=== PATIENT | male | born 1950 | race Caucasian/White ===

== ENCOUNTER 2020-10-04 09:28 | Emergency (ER) | payer MEDICARE, MEDICAID, SELFPAY ==
[2020-10-04] VITALS (9 sets, daily range): BP systolic 112–131; BP diastolic 74–85; PULSE 75–90; RESP 17–26; TEMP 36.3–36.7; O2SAT 93–100
--- NOTE | ~2020-10-04 | XR_ITS ---
EXAMINATION: XR chest 1V portable EXAM DATE: 10/04/2020 11:02 INDICATION: COVID +, hypoxia TECHNIQUE: Portable AP frontal chest x-ray was obtained. Comparison is made to prior examination from 07/19/2018. FINDINGS: There is patchy ill-defined bilateral airspace disease, consistent with acute lung injury f rom SARS-CoV-2, most likely explanation given history provided above. There is no pneumothorax suspec kevin. There are no pleural effusions. Cardiomediastinal silhouette is normal. There are mild bony dege nerative changes. IMPRESSION: Patchy bilateral ill-defined acute airspace disease. Reviewed, dictated and finalized at location B. [facility]
--- NOTE | 2020-10-04 10:37 | ED.GENADULT ---
HPI - General Adult General Chief complaint: Unspecified <Sandy Gee PA-C - Last Filed: 10/04/20 12:35> Stated complaint: LOW O2 SATS <Sandy Gee PA-C - Last Filed: 10/04/20 12:35> Time Seen by Provider: 10/04/20 09:56 <Sandy Gee PA-C - Last Filed: 10/04/20 12:35> Source: patient <Sandy Gee PA-C - Last Filed: 10/04/20 12:35> Mode of arrival: EMS <DAVID Lo Last Filed: 10/04/20 12:35> Limitations: no limitations <Sandy Gee PA-C - Last Filed: 10/04/20 12:35> History of Present Illness HPI narrative: This is a 70 year old male that presents to the ER for low oxygen saturation via EMS from [facility]. Reports he was tested for COVID and positive on 10/01. He has required oxygen at the nursing facility since diagnosis. There are reports he had an infiltrate on chest XR as well. Patient currently has no complaints. Reports he has been having fevers. Denies cough, chest pain, shortness of breath, or lower extremity edema. <Sanyd Gee PA-C - Last Filed: 10/04/20 12:35> Related Data Home medications: Home Medications Medication Instructions Recorded Confirmed albuterol sulfate INHALATION 10/04/20 allopurinol 10/04/20 benztropine 10/04/20 budesonide-formoterol [Symbicort] INHALATION 10/04/20 divalproex PO 10/04/20 divalproex PO 10/04/20 docusate sodium 100 mg PO BID 10/04/20 10/04/20 fluticasone propionate INTRANASAL 10/04/20 gabapentin 10/04/20 guaifenesin 400 mg PO BID 10/04/20 10/04/20 haloperidol lactate 10/04/20 meloxicam 10/04/20 olanzapine mg 10/04/20 polyethylene glycol 3350 [Miralax] 17 g PO DAILY 10/04/20 10/04/20 scopolamine base 10/04/20 tamsulosin mg PO 10/04/20 tiotropium bromide [Spiriva with INHALATION 10/04/20 HandiHaler] <Sandy Gee PA-C - Last Filed: 10/04/20 12:35> Allergies/adverse reactions: Allergies Allergy/AdvReac Type Severity Reaction Status Date / Time TUBERCULIN,OLD SKIN TEST Allergy Unknown Unknown Uncoded 10/04/20 10:36 <Sandy Gee PA-C - Last Filed: 10/04/20 12:35> Review of Systems Review of Systems: Narrative: CONSTITUTIONAL: Reports fever ENT: Denies rhinorrhea, congestion, sore throat CARDIOVASCULAR: Denies chest pain, or edema. RESPIRATORY: Denies cough or dyspnea. <Sandy Gee PA-C - Last Filed: 10/04/20 12:35> All systems reviewed & are unremarkable except as noted in HPI and below <Sandy Gee PA-C - Last Filed: 10/04/20 12:35> [facility] Past Medical History Medical History: Medical History (Updated 10/04/20 @ 12:29 by Sandy Gee PA-C) History of COPD History of gout History of schizophrenia <Sandy Gee PA-C - Last Filed: 10/04/20 12:35> Exam Narrative: Exam Narrative: GENERAL: Elderly, well-nourished, and in no acute distress. HEAD: Normocephalic, atraumatic. EYES: EOMI. ENT: Nares clear, no rhinorrhea or epistaxis. Mucous membranes moist. Oropharynx without tonsillar hypertrophy exudate or other lesions. Bilateral TMs pearly sharpe non-bulging NECK: Supple. No adenopathy or masses. CHEST: Clear to auscultation. No respiratory distress. No wheezes rales or rhonchi HEART: Regular rate and rhythm. No murmur heard. Normal peripheral pulses. EXTREMITIES: Normal range of motion. No edema. SKIN: Warm, dry, no rash. NEURO: No focal deficits. Alert and oriented x3. PSYCH: Normal mood and affect <Sandy Gee PA-C - Last Filed: 10/04/20 12:35> Course Consultations Consultation #1: Spoke with Dr. Villarreal about patient and work-up. Facility does have capability of putting patient on oxygen there and is felt stable for discharge back. <Sandy Gee PA-C - Last Filed: 10/04/20 12:35> Date: 10/04/20 <Sandy Gee PA-C - Last Filed: 10/04/20 12:35> Time: 12:27 <Sandy Gee PA-C - Last Filed: 10/04/20 12:35> Vital Signs Vital signs: Vital Signs Temperat
[2020-10-04 11:05] LABS: Basophils Percent Auto 0.5 % (0.2-1.2); Eosinophils Percent Auto 0.2 % (0-4.4); Hematocrit 39.4 % (42.0-52.0); Hemoglobin 12.1 g/dL (14.0-18.0); Immature Granulocyte Absolute 0.02 K/mm3 (0.00-0.031); Immature Granulocyte Percent A 0.5 % (0-0.5); Lymphocytes Absolute Auto 0.82 K/mm3 (0.9-3.2); Lymphocytes Percent Auto 20.3 % (18.3-44.2); Mean Corpuscular HGB Conc 30.7 g/dl (32-36); Mean Corpuscular Hemoglobin 29.8 pg (26-34); Mean Platelet Volume 10.8 fl (7.4-10.4); Monocytes Absolute Auto 0.7 K/mm3 (0.1-0.6); Monocytes Percent Auto 16.3 % (2.6-8.5); Neutrophils Absolute Auto 2.5 K/mm3 (1.3-6.7); Neutrophils Percent Auto 62.2 % (45.5-73.1); Platelet Count Result 168 k/mm3 (150-375); Red Blood Count 4.06 M/mm3 (4.6-6.20); Red Cell Distribution Width 15.8 % (11.5-14.5)
[2020-10-04 11:14] LABS: Lactic Acid Reflex 1.9 mmol/L (0.7-2.1)
[2020-10-04 11:16] LABS: Alanine Aminotransferase 17 U/L (4-50); Albumin Level 3.4 g/dL (3.5-5.1); Alkaline Phosphatase 62 U/L (38-126); Anion Gap 7 mmol/L (8-16); Aspartate Amino Transferase 36 U/L (17-59); Bilirubin,Total 0.3 mg/dL (0.2-1.3); Blood Urea Nitrogen 17 mg/dL (9-20); CRP 2.2 mg/dL (<1.0); Calcium 8.2 mg/dL (8.4-10.2); Carbon Dioxide 31 mmol/L (22-30); Chloride 102 mmol/L (98-107); Estimated CRCL calculation 92 ml/min; Estimated Glomerular Filt Rate > 60; Glucose 119 mg/dL (75-110); Lactate Dehydrogenase 543 U/L (313-618); Potassium 3.6 mmol/L (3.4-5.0); Sodium 140 mmol/L (137-145)
--- NOTE | 2020-10-04 12:58 | PC.NURSE ---
Angeles RN from [facility] requested that when pt is d/c back to their facility if he could be d/c with his iv intact. water filterer helper and EDP made aware and agree with plan as pt will be getting IV antibiotics at the facility.
== END 2020-10-04 17:53 ==
PROVIDERS: Physician Assistant; Emergency Provider General Practice; PCP Family Medicine
DX: U07.1 COVID-19 (principal); J12.89 Other viral pneumonia; J44.9 Chronic obstructive pulmonary disease, unspecified; F20.9 Schizophrenia, unspecified; M10.9 Gout, unspecified
CPT/HCPCS: 36415; 71045; 80053; 82728; 83605; 83615; 85025; 85055; 86140; 99283

== ENCOUNTER 2022-04-05 15:48 | Emergency (ER) | payer MEDICARE, MEDICAID, SELFPAY ==
[2022-04-05 16:02] VITALS: BP 142/80; PULSE 94; RESP 18; TEMP 36.4; O2SAT 96
--- NOTE | 2022-04-05 17:19 | ED.MALEGU ---
HPI - Male Genitourinary General Chief complaint: Urogenital-Male Stated complaint: urinary retention, bleeding after de la fuente attempt Time Seen by Provider: 04/05/22 16:41 Source: patient Mode of arrival: ambulatory Limitations: language barrier History of Present Illness HPI Narrative: Pt says he had a straight cath today because he was having trouble fully voiding and the nurse said there was a lot of blood afterward and she was concerned about a damaged urethra so he came to ER. Location: penis Related Data Home Medications Medication Instructions Recorded Confirmed albuterol sulfate INHALATION 10/04/20 allopurinol 10/04/20 benztropine 10/04/20 budesonide-formoterol [Symbicort] INHALATION 10/04/20 divalproex PO 10/04/20 divalproex PO 10/04/20 docusate sodium 100 mg PO BID 10/04/20 10/04/20 fluticasone propionate INTRANASAL 10/04/20 gabapentin 10/04/20 guaifenesin 400 mg PO BID 10/04/20 10/04/20 haloperidol lactate 10/04/20 meloxicam 10/04/20 olanzapine mg 10/04/20 polyethylene glycol 3350 [Miralax] 17 g PO DAILY 10/04/20 10/04/20 scopolamine base 10/04/20 tamsulosin mg PO 10/04/20 tiotropium bromide [Spiriva with INHALATION 10/04/20 HandiHaler] Allergies Allergy/AdvReac Type Severity Reaction Status Date / Time TUBERCULIN,OLD SKIN TEST Allergy Unknown Unknown Uncoded 04/05/22 17:22 Review of Systems Review of Systems: All systems reviewed & are unremarkable except as noted in HPI and below [facility] Past Medical History Medical History (Updated 04/05/22 @ 18:16 by Kermit Luna III, DO) History of COPD History of gout History of schizophrenia Exam Const: General: no acute distress and alert Resp: Effort & Inspection: normal respiratory effort Auscultation: clear to auscultation bilaterally Cardio: Rate: regular rate Rhythm: regular rhythm GI: GI Palp: Yes Soft to palpation Auscultation: normal bowel sounds Skin: General skin exam: normal color Neuro: General: patient oriented x3 Course Course Emergency Course: nurse said catheter went in easily without resistance, 800 ml prior by bladder scan and that is what she got in de la fuente no gross blood, urine cloudy and dark Vital Signs Vital signs: Vital Signs Temperature 97.5 F L 04/05/22 16:02 Pulse Rate 94 04/05/22 16:02 Respiratory Rate 18 04/05/22 16:02 Blood Pressure 142/80 H 04/05/22 16:02 Pulse Oximetry 96 04/05/22 16:02 Temperature 97.5 F L 04/05/22 16:02 Pulse Rate 76 04/05/22 18:19 Respiratory Rate 20 04/05/22 18:19 Blood Pressure 126/82 04/05/22 18:19 Pulse Oximetry 95 04/05/22 18:19 MDM - Male Genitourinary Lab Data Labs: Lab Results 04/05/22 Range/Units 17:23 Urine Color Yellow (Yellow) Urine Appearance Cloudy H (Clear) Urine pH 6.5 (5.0-9.0) Ur Specific [place] 1.020 (1.001-1.035) Urine Protein Trace (Negative) mg/dL Urine Glucose (UA) Negative (Negative) mg/dL Urine Ketones Negative (Negative) mg/dL Ur Blood (Man) 2+ H (Negative) Urine Nitrate Negative (Negative) Urine Bilirubin Negative (Negative) Urine Urobilinogen 0.2 (<2.0) mg/dL Leukocyte Esterase Rfl Trace H (Negative) BRANDYN/UL Urine RBC >75 H (0-2) /hpf Urine WBC 31-50 H /hpf Urine Bacteria Trace /hpf Urine Mucus Rare /lpf Urine Characteristics Cloudy Discharge Plan Discharge Clinical Impression: Acute urinary retention Urinary tract infection Qualifiers: Urinary tract infection type: acute cystitis Hematuria presence: with hematuria Qualified Code(s): N30.01 - Acute cystitis with hematuria Patient Disposition: Home, Self-Care Condition: Improved Instructions: Antibiotic Form, Urinary Retention in Men (ED), Urinary Tract Infection in Men (ED) Prescriptions: New nitrofurantoin monohyd/m-cryst [Macrobid] 100 mg capsule 100 mg PO Q12H 5 Days Qty: 10 RF: 0 No Act
[2022-04-05 17:41] LABS: Appearance Urine Cloudy (Clear); Bilirubin Urine Negative (Negative); Blood Urine 2+ (Negative); Color Urine Yellow (Yellow); Glucose Urine UA Negative (Negative); Ketones Urine Negative (Negative); Leukocyte Esterase Ur Trace LEU/UL (Negative); Nitrate Urine Negative (Negative); Protein Urine Trace mg/dL (Negative); Urobilinogen Urine 0.2 mg/dL (<2.0); pH Urine 6.5 (5.0-9.0)
[2022-04-05 17:47] LABS: Bacteria Urine Trace /hpf; Mucus Urine Rare /lpf; RBC Urine >75 /hpf (0-2); WBC Urine 31-50 /hpf
[2022-04-05 17:55] LABS: Add Urine Microscopic? YES
[2022-04-05 18:19] VITALS: BP 126/82; PULSE 76; RESP 20; O2SAT 95
--- NOTE | 2022-04-05 18:35 | PC.NURSE ---
@ [phone] ryegate sup notified of bls return to [facility]
[2022-04-05 20:25] VITALS: BP 142/71; PULSE 75; RESP 16; O2SAT 97
== END 2022-04-05 20:30 ==
PROVIDERS: Emergency Provider Emergency Medicine; PCP Family Medicine
DX: N30.01 Acute cystitis with hematuria (principal); R33.9 Retention of urine, unspecified; J44.9 Chronic obstructive pulmonary disease, unspecified; M10.9 Gout, unspecified; F20.9 Schizophrenia, unspecified
CPT/HCPCS: 51702; 81001; 87086; 99283

== ENCOUNTER 2024-03-19 17:31 | Inpatient (IN) | payer MEDICARE, MEDICAID, SELFPAY ==
--- NOTE | ~2024-03-19 | CT_ITS ---
EXAMINATION: CT abdomen pelvis wo/w con DATE: 03/19/2024 23:09 INDICATION: Gross hematuria. Urinary tract infection. TECHNIQUE: Computed tomography (CT) of the abdomen and pelvis was performed without and with intraven ous contrast using a total of 130 mL Omnipaque-350 intravenous contrast with a double-bolus technique for simultaneous opacification of the renal parenchyma and renal collecting system. Automated exposu re control and iterative reconstruction technique were employed. The dose-length product was 3608.26 mGy-cm. COMPARISON: None FINDINGS: The visualized portions of the lung bases demonstrate emphysema and mild atelectasis. There are tree- in-bud opacities in the lower lobes, consistent with pneumonia. There is a 4 mm nodule in right middl e lobe, likely benign. The heart size is normal. There are coronary artery calcifications. No pericar dial effusion. The liver is normal. There is a gallstone in the gallbladder, which is normal in size. Calcifications in the spleen are consistent with old granulomatous disease. Calcifications in the pa ncreas are consistent with chronic pancreatitis. Left adrenal gland is normal. There is a 3.2 cm mass in right adrenal gland containing fat, consistent with a myelolipoma. There are cysts in the kidneys measuring up to 10.6 cm in the left. There is no urolithiasis. There are others are well opacified a nd are normal. There is a Law catheter in expected position. There is hematoma in the bladder lumen . There is diffuse bladder wall thickening. The prostate is mildly enlarged. There is a right inguina l hernia containing fat. Stool distends the rectosigmoid. There are no dilated loops of bowel. The ap pendix is normal. There is calcified atherosclerosis of the aorta and many of the other arteries. The re are no pathologically enlarged lymph nodes. There is no free intraperitoneal fluid. There is mild thoracic and lumbar spondylosis. IMPRESSION: 1. Hematoma in the bladder lumen. 2. Diffuse bladder wall thickening, likely secondary to chronic outlet obstruction from the mildly en larged prostate. 3. Pneumonia in the lower lobes. Reviewed, dictated and finalized at location E. IMPRESSION: 1. Hematoma in the bladder lumen. 2. Diffuse bladder wall thickening, likely secondary to chronic outlet obstruct ion from the mildly enlarged prostate. 3. Pneumonia in the lower lobes.
[2024-03-19 17:49] VITALS: BP 131/80; PULSE 77; RESP 16; TEMP 36.6; O2SAT 98
--- NOTE | 2024-03-19 17:49 | ED.MALEGU ---
HPI - Male Genitourinary General Chief complaint: Urogenital-Male <Anant Almnazar, INVENTORY PLANNER - Last Filed: 04/08/24 08:50> Stated complaint: blood clot in urine <Anant Almanzar INVENTORY PLANNER - Last Filed: 04/08/24 08:50> Time Seen by Provider: 03/19/24 22:03 <Anant Almanzar INVENTORY PLANNER - Last Filed: 04/08/24 08:50> Focused HPI: GENERAL: Well-appearing, well-nourished, and in no acute distress. HEAD: Normocephalic, atraumatic. CHEST: Clear to auscultation. No respiratory distress. HEART: Regular rate and rhythm. NEURO: Alert and oriented x3. ABD: No abdominal pain. No suprapubic tenderness Patient screened in triage and initial orders placed. Additional care and disposition to be based upon diagnostic testing and treatment. 73-year-old male history of lung CA, seizure disorder BPH on Flomax presents to the emergency room for evaluation of hematuria. Patient states he passed a blood clot earlier today. Patient states he has been able to empty his bladder on 2 occasions after passing blood clot. Denies any abdominal pain suprapubic pain. Denies any back pain. Denies fevers. No history of similar episodes. Denies any injury to his abdomen <Anant Almanzar, INVENTORY PLANNER - Last Filed: 04/08/24 08:50> Focused HPI: 73-year-old male history of lung CA, seizure disorder BPH on Flomax presents to the emergency room for evaluation of hematuria. Patient states he passed a blood clot earlier today. Patient states he has been able to empty his bladder on 2 occasions after passing blood clot. Denies any abdominal pain suprapubic pain. Denies any back pain. Denies fevers. No history of similar episodes. Denies any injury to his abdomen GENERAL: Well-appearing, well-nourished, and in no acute distress. HEAD: Normocephalic, atraumatic. CHEST: Clear to auscultation. No respiratory distress. HEART: Regular rate and rhythm. NEURO: Alert and oriented x3. ABD: No abdominal pain. No suprapubic tenderness Patient screened in triage and initial orders placed. Additional care and disposition to be based upon diagnostic testing and treatment. <Renu Parikh PA-C - Last Filed: 03/19/24 23:57> Source: patient <DAVID Torres Last Filed: 03/19/24 23:57> Mode of arrival: EMS <DAVID Torres Last Filed: 03/19/24 23:57> Limitations: no limitations <DAVID Torres Last Filed: 03/19/24 23:57> History of Present Illness HPI Narrative: Patient states hematuria began around 11:00 a.m.. Has been passing large blood clots. Denies dysuria. At the time of my evaluation, patient does complain of some lower abdominal discomfort over his suprapubic region. Denies nausea, vomiting, back or flank pain, fevers. Patient is a resident of [facility]. History of schizophrenia. He is not on any anticoagulation. <DAVID Torres Last Filed: 03/19/24 23:57> Related Data Home medications: Home Medications Medication Instructions Recorded Confirmed allopurinol 100 mg tablet 100 mg PO BID 10/04/20 03/20/24 divalproex 250 mg tablet,delayed 250 mg PO QPM 10/04/20 03/20/24 release divalproex 500 mg tablet,delayed 500 mg PO DAILY 10/04/20 03/20/24 release docusate sodium 100 mg capsule 100 mg PO BID 10/04/20 03/20/24 fluticasone propionate 50 50 mcg intranasal DAILY 10/04/20 03/20/24 mcg/actuation nasal spray,suspension gabapentin 100 mg capsule 200 mg PO HS 10/04/20 03/20/24 guaifenesin 400 mg tablet 400 mg PO BID 10/04/20 03/20/24 haloperidol lactate 5 mg/mL 2 mg BID 10/04/20 03/20/24 injection solution meloxicam 7.5 mg tablet 7.5 mg PO DAILY 10/04/20 03/20/24 olanzapine 7.5 mg tablet 7.5 mg PO HS 10/04/20 03/20/24 polyethylene glycol 3350 17 gram 17 g PO DAILY 10/04/20 03/20/24 oral powder packet (Miralax) tamsulosin 0.4 mg capsule 0.4 mg PO DAILY 10/04/20 03/20/24 Tylenol 1,000 mg PO BID 03/20/24 03/20/24 atropine 1 % sublingual Q4-5H
[2024-03-19 19:36] LABS: Basophils Percent Auto 0.4 % (0.2-1.2); Eosinophils Absolute Auto 0.4 K/mm3 (0-0.3); Eosinophils Percent Auto 5.7 % (0-4.4); Hematocrit 38.4 % (42.0-52.0); Immature Granulocyte Absolute 0.02 K/mm3 (0.00-0.031); Immature Granulocyte Percent A 0.3 % (0-0.5); Lymphocytes Absolute Auto 2.22 K/mm3 (0.9-3.2); Lymphocytes Percent Auto 30.2 % (18.3-44.2); Mean Corpuscular HGB Conc 31.3 g/dl (32-36); Mean Corpuscular Hemoglobin 28.6 pg (26-34); Mean Corpuscular Volume 91.4 fl (80-100); Monocytes Absolute Auto 0.7 K/mm3 (0.1-0.6); Monocytes Percent Auto 8.8 % (2.6-8.5); Neutrophils Percent Auto 54.6 % (45.5-73.1); Platelet Count Result 260 k/mm3 (150-375); Red Cell Distribution Width 14.5 % (11.5-14.5); White Blood Count 7.4 K/mm3 (4.5-10.0)
[2024-03-19 19:38] LABS: Alanine Aminotransferase 11 U/L (6-50); Albumin Level 4.1 g/dL (3.5-5.1); Alkaline Phosphatase 81 U/L (38-126); Anion Gap 7 mmol/L (4-12); Aspartate Amino Transferase 18 U/L (17-59); Bilirubin,Total 0.3 mg/dL (0.2-1.3); Blood Urea Nitrogen 17 mg/dL (9-20); Calcium 9.1 mg/dL (8.4-10.2); Carbon Dioxide 28 mmol/L (22-30); Chloride 106 mmol/L (98-107); Estimated CRCL calculation 76 ml/min; Estimated Glomerular Filt Rate > 60; Glucose 96 mg/dL (65-110); Potassium 4.2 mmol/L (3.4-5.0); Sodium 141 mmol/L (137-145)
[2024-03-19 19:48] LABS: Appearance Urine Cloudy (Clear); Bacteria Urine 1+ /hpf; Bilirubin Urine 2+ (Negative); Blood Urine 2+ (Negative); Color Urine Red (Yellow); Glucose Urine UA Negative (Negative); Ketones Urine Negative (Negative); Leukocyte Esterase Ur 3+ LEU/UL (Negative); Need Manual Microscopic Reviewed; Nitrate Urine Positive (Negative); Non Pathogenic Casts 0-2; Protein Urine 2+ mg/dL (Negative); RBC Urine >100 /hpf (0-2); Specific Grav Ur 1.014 (1.001-1.035); Squamous Epithelial Cell Urine Occasional /hpf (Few); Urobilinogen Urine 0.2 mg/dL (<2.0); WBC Urine >100 /hpf (0-3)
[2024-03-19 19:50] LABS: Add Urine Microscopic? YES
[2024-03-19 20:09] LABS: Prostate Specific Antigen 2.4 ng/mL (< OR = 4.0)
--- NOTE | 2024-03-19 21:46 | PC.NURSE ---
Pt has come to triage desk multiple times stating that he needs to use the restroom. pt has been taken back twice and was unable to urinate. this RN attempted to bladder scan pt but was unable to get accurate reading due to pt sitting in wheelchair. Blood clots also noted inside of pts depend.
--- NOTE | 2024-03-19 22:23 | PC.NURSE ---
22:23- 3 way catheter placed at this time by this RN for CBI. Pt drained 500 ml of bloody urine prior to starting CBI.
--- NOTE | 2024-03-19 22:33 | ED.MALEGU ---
HPI - Male Genitourinary General Chief complaint: Urogenital-Male Stated complaint: blood clot in urine Time Seen by Provider: 03/19/24 22:03 Source: patient Mode of arrival: EMS Limitations: no limitations History of Present Illness HPI Narrative: Patient is a 73-year-old male who presents the ED via EMS with report of hematuria. Patient resident of [facility]. Reports he developed blood in his urine around Related Data Home Medications Medication Instructions Recorded Confirmed albuterol sulfate 90 mcg/actuation inhalation 10/04/20 aerosol inhaler allopurinol 100 mg tablet 10/04/20 benztropine 1 mg tablet 10/04/20 budesonide-formoterol HFA 160 inhalation 10/04/20 mcg-4.5 mcg/actuation aerosol inhaler (Symbicort) divalproex 250 mg tablet,delayed PO 10/04/20 release divalproex 500 mg tablet,delayed PO 10/04/20 release docusate sodium 100 mg capsule 100 mg PO BID 10/04/20 10/04/20 fluticasone propionate 50 intranasal 10/04/20 mcg/actuation nasal spray,suspension gabapentin 100 mg capsule 10/04/20 guaifenesin 400 mg tablet 400 mg PO BID 10/04/20 10/04/20 haloperidol lactate 5 mg/mL 10/04/20 injection solution meloxicam 7.5 mg tablet 10/04/20 olanzapine 7.5 mg tablet mg 10/04/20 polyethylene glycol 3350 17 gram 17 g PO DAILY 10/04/20 10/04/20 oral powder packet (Miralax) scopolamine base 1 mg over 3 days 10/04/20 transdermal patch tamsulosin 0.4 mg capsule mg PO 10/04/20 tiotropium bromide 18 mcg capsule inhalation 10/04/20 with inhalation device (Spiriva with HandiHaler) Allergies Allergy/AdvReac Type Severity Reaction Status Date / Time TUBERCULIN,OLD SKIN TEST Allergy Unknown Unknown Uncoded 04/05/22 17:22 [facility] Past Medical History Medical History (Updated 04/06/22 @ 00:00 by Background Daemon) History of COPD History of gout History of schizophrenia Course Vital Signs Vital signs: Vital Signs Temperature 97.9 F 03/19/24 17:49 Pulse Rate 77 03/19/24 17:49 Respiratory Rate 16 03/19/24 17:49 Blood Pressure 131/80 03/19/24 17:49 Pulse Oximetry 98 03/19/24 17:49 Temperature 97.9 F 03/19/24 17:49 Pulse Rate 77 03/19/24 17:49 Respiratory Rate 16 03/19/24 17:49 Blood Pressure 131/80 03/19/24 17:49 Pulse Oximetry 98 03/19/24 17:49 MDM - Male Genitourinary Lab Data 03/19/24 19:02 03/19/24 19:02 Labs: Lab Results 03/19/24 Range/Units 19:02 WBC 7.4 (4.5-10.0) K/mm3 RBC 4.20 L (4.6-6.20) M/mm3 Hgb 12.0 L (14.0-18.0) g/dL Hct 38.4 L (42.0-52.0) % MCV 91.4 (80-100) fl MCH 28.6 (26-34) pg MCHC 31.3 L (32-36) g/dl RDW 14.5 (11.5-14.5) % Plt Count 260 D (150-375) k/mm3 MPV 10.0 (7.4-10.4) fl Immature Gran % (Auto) 0.3 (0-0.5) % Neut % (Auto) 54.6 (45.5-73.1) % Lymph % (Auto) 30.2 (18.3-44.2) % [place] % (Auto) 8.8 H (2.6-8.5) % Eos % (Auto) 5.7 H (0-4.4) % Baso % (Auto) 0.4 (0.2-1.2) % Lymph # (Auto) 2.22 (0.9-3.2) K/mm3 [place] # (Auto) 0.7 H (0.1-0.6) K/mm3 Eos # (Auto) 0.4 H (0-0.3) K/mm3 Baso # (Auto) 0.0 (0.0-0.1) K/mm3 Abs Immat Gran (auto) 0.02 (0.00-0.031) K/mm3 Absolute Neuts (auto) 4.0 (1.3-6.7) K/mm3 Absolute Nucleated RBC 0.000 (0.0-0.012) K/mm3 Nucleated RBC % 0.0 (0.0-0.2) % Sodium 141 (137-145) mmol/L Potassium 4.2 (3.4-5.0) mmol/L Chloride 106 (98-107) mmol/L Carbon Dioxide 28 (22-30) mmol/L Anion Gap 7 (4-12) mmol/L BUN 17 (9-20) mg/dL Creatinine 0.80 (0.7-1.3) mg/dL Estim Creat Clear Calc 76 ml/min Estimated GFR > 60 (59 - ) Glucose 96 (65-110) mg/dL Calcium 9.1 (8.4-10.2) mg/dL Total Bilirubin 0.3 (0.2-1.3) mg/dL AST 18 (17-59) U/L ALT 11 (6-50) U/L Alkaline Phosphatase 81 (38-126) U/L Total Protein 8.0 (6.3-8.2) g/dL Albumin 4.1 (3.5-5.1) g/dL Prostate Specific Ag 2.4 (< OR = 4.0) ng/mL Urine Color Red H (Yello
--- NOTE | 2024-03-19 23:25 | PC.NURSE ---
23:25- THis RN just emptied de la fuente catheter around 5,000ml
[2024-03-20] VITALS (8 sets, daily range): BP systolic 115–126; BP diastolic 73–81; PULSE 57–81; RESP 13–18; TEMP 35.9–36.8; O2SAT 93–98
--- NOTE | 2024-03-20 00:11 | PC.NURSE ---
0011: This RN emptied out 3000 more from his de la fuente from I
--- NOTE | 2024-03-20 04:58 | ECG_ITS ---
SEE SCANNED COPY FOR CONFIRMED REPORT MTDD
--- NOTE | 2024-03-20 04:59 | PM.IMHP ---
H&P: HPI History of Present Illness Date/Time: 03/20/24 04:59 Chief Complaint: Gross hematuria Narrative: This is a pleasant 73-year-old male with a history of schizophrenia, gout, COPD, seizure disorder, BPH,, urinary retention, hypertension, status post traumatic brain injury in 2017 who presents from his usual residence [facility] complaint of gross hematuria and passing a clot. He otherwise had no complaints. Upon presentation to [place] ER he is found to have abnormal urinalysis 250 mL on a bladder scan and CT abdomen pelvis demonstrating hematoma in the bladder lumen with bladder wall thickening. Law catheter placed with CBI initiated. Urology consulted from ER. CT demonstrating evidence of pneumonia in the lower lobes however the patient has no complaints the time of presentation. He is on room air and will be receiving ceftriaxone for UTI. Review of Systems Review of Systems: All systems reviewed & are unremarkable except as noted in HPI and below (Subjective) [facility] Past Medical History Medical History History of COPD History of gout History of schizophrenia Meds Home Medications and Allergies Home Medications Medication Instructions Recorded Confirmed Type allopurinol 100 mg tablet 100 mg PO BID 10/04/20 03/20/24 History divalproex 250 mg tablet,delayed 250 mg PO QPM 10/04/20 03/20/24 History release divalproex 500 mg tablet,delayed 500 mg PO DAILY 10/04/20 03/20/24 History release docusate sodium 100 mg capsule 100 mg PO BID 10/04/20 03/20/24 History fluticasone propionate 50 50 mcg intranasal DAILY 10/04/20 03/20/24 History mcg/actuation nasal spray,suspension gabapentin 100 mg capsule 200 mg PO HS 10/04/20 03/20/24 History guaifenesin 400 mg tablet 400 mg PO BID 10/04/20 03/20/24 History haloperidol lactate 5 mg/mL 2 mg BID 10/04/20 03/20/24 History injection solution meloxicam 7.5 mg tablet 7.5 mg PO DAILY 10/04/20 03/20/24 History olanzapine 7.5 mg tablet 7.5 mg PO HS 10/04/20 03/20/24 History polyethylene glycol 3350 17 gram 17 g PO DAILY 10/04/20 03/20/24 History oral powder packet (Miralax) tamsulosin 0.4 mg capsule 0.4 mg PO DAILY 10/04/20 03/20/24 History Tylenol 1,000 mg PO BID 03/20/24 03/20/24 History atropine 1 % sublingual Q4-5H PRN As Needed 03/20/24 03/20/24 History for secretions budesonide-formoterol HFA 160 2 inh inhalation BID 03/20/24 03/20/24 History mcg-4.5 mcg/actuation aerosol inhaler (Symbicort) furosemide 20 mg tablet 20 mg PO DAILY 03/20/24 03/20/24 History lumateperone 42 mg capsule 42 mg PO DAILY 03/20/24 03/20/24 History (Caplyta) potassium chloride 10 mEq 10 meq PO DAILY 03/20/24 03/20/24 History capsule,extended release umeclidinium 62.5 mcg/actuation 1 inh inhalation DAILY 03/20/24 03/20/24 History blister powder for inhalation (Incruse Ellipta) Allergies Allergy/AdvReac Type Severity Reaction Status Date / Time TUBERCULIN,OLD SKIN TEST Allergy Unknown Unknown Uncoded 04/05/22 17:22 Vital Signs Vital Signs - 24 hr 03/19/24 17:49 Temperature 97.9 F Pulse Rate 77 Respiratory Rate 16 Blood Pressure 131/80 Pulse Oximetry 98 Exam Const: General: comfortable and no acute distress Eyes: Pupils: Equal, round and reactive pupils present Neck: Neck: supple Resp: Effort & Inspection: normal respiratory effort Auscultation: clear to auscultation bilaterally Cardio: Rate: regular rate Rhythm: regular rhythm GI: GI Palp: Yes Soft to palpation and No Tenderness to palpation present (GI) : General: Yes bladder normal to palpation Neuro: Motor exam (neuro): 5/5 motor strength present throughout Other: Lingual dyskinesia Extrem: General: no edema H&P: Results Labs Labs: Short CBC 03/19/24 Range/Units 19:02 WBC 7.4 (4.5-10.0) K/mm3 Hgb 12.0 L (14.0-18.0) g/dL Hct 38.4 L (42.0-52.0) % Plt Co
[2024-03-20 06:29] LABS: Basophils Percent Auto 0.3 % (0.2-1.2); Eosinophils Absolute Auto 0.4 K/mm3 (0-0.3); Eosinophils Percent Auto 4.4 % (0-4.4); Hematocrit 42.4 % (42.0-52.0); Hemoglobin 12.8 g/dL (14.0-18.0); Immature Granulocyte Absolute 0.02 K/mm3 (0.00-0.031); Immature Granulocyte Percent A 0.2 % (0-0.5); Lymphocytes Absolute Auto 2.46 K/mm3 (0.9-3.2); Lymphocytes Percent Auto 28.2 % (18.3-44.2); Mean Corpuscular HGB Conc 30.2 g/dl (32-36); Mean Corpuscular Hemoglobin 28.1 pg (26-34); Mean Platelet Volume 10.3 fl (7.4-10.4); Monocytes Absolute Auto 0.8 K/mm3 (0.1-0.6); Monocytes Percent Auto 8.8 % (2.6-8.5); Neutrophils Absolute Auto 5.1 K/mm3 (1.3-6.7); Neutrophils Percent Auto 58.1 % (45.5-73.1); Platelet Count Result 262 k/mm3 (150-375); Red Blood Count 4.56 M/mm3 (4.6-6.20); Red Cell Distribution Width 14.5 % (11.5-14.5); White Blood Count 8.7 K/mm3 (4.5-10.0)
[2024-03-20 06:43] LABS: Prothrombin Time 13.9 Seconds (11.1-14.7)
[2024-03-20 06:54] LABS: Alanine Aminotransferase 11 U/L (6-50); Albumin Level 4.2 g/dL (3.5-5.1); Alkaline Phosphatase 96 U/L (38-126); Anion Gap 6 mmol/L (4-12); Aspartate Amino Transferase 22 U/L (17-59); Bilirubin,Total 0.4 mg/dL (0.2-1.3); Blood Urea Nitrogen 13 mg/dL (9-20); Calcium 8.9 mg/dL (8.4-10.2); Carbon Dioxide 31 mmol/L (22-30); Chloride 104 mmol/L (98-107); Estimated CRCL calculation 86 ml/min; Estimated Glomerular Filt Rate > 60; Glucose 87 mg/dL (65-110); Magnesium 2.4 mg/dL (1.6-2.3); Potassium 3.9 mmol/L (3.4-5.0); Sodium 141 mmol/L (137-145)
[2024-03-20] MEDS: UMECLIDINIUM BROMIDE 62.5 MCG ELLIPTA 1 PUFF INHALATION (07:08)
[2024-03-20] MEDS: FLUTICASONE/SALMETEROL 115-21 MCG INHALER 1 PUFF 2 PUFF INHALATION ×2 (07:08→20:42)
--- NOTE | 2024-03-20 08:38 | PC.NURSE ---
This patient, Wilfred Wright, was admitted to 3 Med Surg Room 305-02. Patient/family oriented to hospital policies and general routines including ID bracelet, bed and alarms, visiting hours, pain management, procedures, bathroom and other care routines, personal items, smoking policy, room service/diet, and visiting hours. Information on how to activate the Rapid Response Team has been discussed. Patient/Family are encouraged to report perceived risks to care and to ask questions if they do not understand what they are told or what they should do.
--- NOTE | 2024-03-20 09:30 | WPDURCON ---
Assessment and Plan Assessment and plan (1) Gross hematuria: Code(s): R31.0 - Gross hematuria Status: Acute Assessment and Plan: Gross hematuria has resolved. He can turn off continuous bladder irrigation. The Law catheter can be removed the discretion of the primary team. Will just need outpatient urologic follow-up. (2) Abnormal urinalysis: Code(s): R82.90 - Unspecified abnormal findings in urine Status: Acute Assessment and Plan: Nitrate positive. Could be consistent with infection. No prominent UTI symptoms. Could empirically treat with antibiotics Urology Consult Note HPI Date Seen: 03/20/24 Requesting Physician: Billie Flowers MD Primary Care Provider: Cherelle Alejandre MD Consult Narrative Narrative: Wilfred Wright is a 73 year old male with history of a traumatic brain injury. He is a longterm resident. He was brought in for a 1 day history of gross hematuria with the passage of clots. He denied any fevers or chills. He denied any voiding symptoms that would be consistent with infection. He denies any obstructive voiding symptoms. He was found to have 250 cc in his bladder. Law was placed. CT scan showed a blood clot in the urinary bladder and a mildly enlarged prostate. He was started on continuous bladder irrigation. I discussed with the patient today. He answers mostly yes and no questions. Again, he confirms no significant obstructive voiding symptoms. He confirms no symptoms of infection. Urinalysis is positive for nitrate. He has a Law catheter with continuous bladder irrigation on slow. His urine is basically clear at this point. Review of Systems Review of Systems: All systems reviewed & are unremarkable except as noted in HPI and below PMFSH Past Medical History Medical History History of COPD History of gout History of schizophrenia Social History Social History Smoking status: Unknown if ever smoked Alcohol intake: unknown Substance use: unknown Spiritual care concerns: No Meds Home Medications and Allergies Home Medications Medication Instructions Recorded Confirmed Type allopurinol 100 mg tablet 100 mg PO BID 10/04/20 03/20/24 History divalproex 250 mg tablet,delayed 250 mg PO QPM 10/04/20 03/20/24 History release divalproex 500 mg tablet,delayed 500 mg PO DAILY 10/04/20 03/20/24 History release docusate sodium 100 mg capsule 100 mg PO BID 10/04/20 03/20/24 History fluticasone propionate 50 50 mcg intranasal DAILY 10/04/20 03/20/24 History mcg/actuation nasal spray,suspension gabapentin 100 mg capsule 200 mg PO HS 10/04/20 03/20/24 History guaifenesin 400 mg tablet 400 mg PO BID 10/04/20 03/20/24 History haloperidol lactate 5 mg/mL 2 mg BID 10/04/20 03/20/24 History injection solution meloxicam 7.5 mg tablet 7.5 mg PO DAILY 10/04/20 03/20/24 History olanzapine 7.5 mg tablet 7.5 mg PO HS 10/04/20 03/20/24 History polyethylene glycol 3350 17 gram 17 g PO DAILY 10/04/20 03/20/24 History oral powder packet (Miralax) tamsulosin 0.4 mg capsule 0.4 mg PO DAILY 10/04/20 03/20/24 History Tylenol 1,000 mg PO BID 03/20/24 03/20/24 History atropine 1 % sublingual Q4-5H PRN As Needed 03/20/24 03/20/24 History for secretions budesonide-formoterol HFA 160 2 inh inhalation BID 03/20/24 03/20/24 History mcg-4.5 mcg/actuation aerosol inhaler (Symbicort) furosemide 20 mg tablet 20 mg PO DAILY 03/20/24 03/20/24 History lumateperone 42 mg capsule 42 mg PO DAILY 03/20/24 03/20/24 History (Caplyta) potassium chloride 10 mEq 10 meq PO DAILY 03/20/24 03/20/24 History capsule,extended release umeclidinium 62.5 mcg/actuation 1 inh inhalation DAILY 03/20/24 03/20/24 History blister powder for inhalation (Incruse Ellipta) Allergies Allergy/AdvReac Type Severity Reaction
[2024-03-20] MEDS: allopurinoL 100 MG TABLET PO ×2 (09:37→17:17)
[2024-03-20] MEDS: DIVALPROEX SODIUM DR 250 MG TABEC 500 MG PO (09:37)
[2024-03-20] MEDS: POTASSIUM CHLORIDE 10 MEQ ER TABLET PO (09:37)
[2024-03-20] MEDS: TAMSULOSIN HCL 0.4 MG CAPSULE PO (09:38)
[2024-03-20] MEDS: FUROSEMIDE 20 MG TABLET PO (09:45)
--- NOTE | 2024-03-20 11:47 | PC.NURSE ---
documentation done by Tiffanie Dunn overseen by this RN.
--- NOTE | 2024-03-20 11:48 | PM.IMPN ---
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 He otherwise had no complaints. Upon presentation to [place] ER he is found to have abnormal urinalysis 250 mL on a bladder scan and CT abdomen pelvis demonstrating hematoma in the bladder lumen with bladder wall thickening. Law catheter placed with CBI initiated. Urology consulted from ER. No plans for procedure. Hematuria has slowed down monitor off CBI eventually Law catheter removed. On ceftriaxone for UTI. Follow urine culture. SCDs. Code status DNR. Subjective Date/time seen: 03/20/24 11:48 Interval history: cbi ongoing. no new compalints. pinkish urine in bag Review of Systems Review of Systems: All systems reviewed & are unremarkable except as noted in HPI and below (Subjective) Exam Narrative: GENERAL:? Elderly, well-nourished, non-toxic, in no acute distress. HEAD: Normocephalic, atraumatic. ENT: Edentulous. RESPIRATORY: Airway patent, respirations nonlabored. Clear to auscultation bilaterally, no rales, rhonchi, wheezing. CARDIOVASCULAR: Regular rate and rhythm without murmurs, rubs, or gallops. ABDOMINAL: Soft, nontender, no rebound, nondistended. Normoactive BS. MUSCULOSKELETAL: Moves all extremities. No gross deformities. SKIN: Warm, dry, normal color. NEURO: A&O X3. Speech clear. Cranial nerves II-XII grossly intact. Steady gait.? Tardive dyskinesia. PSYCHIATRIC: Appropriate mood and affect. Normal interaction Objective Data Vital Signs Vital Signs: Vital Signs - 24 hr 03/19/24 17:49 03/20/24 04:46 03/20/24 06:25 Temperature 97.9 F 96.7 F L Pulse Rate 77 63 Respiratory Rate 16 16 Blood Pressure 131/80 118/76 Pulse Oximetry 98 98 Oxygen Delivery Room Air 03/20/24 07:10 03/20/24 07:10 03/20/24 08:00 Temperature 97.3 F L Pulse Rate 57 L 57 L 57 L Respiratory Rate 18 18 14 Blood Pressure 126/81 Pulse Oximetry 93 96 Oxygen Delivery Room Air 03/20/24 11:03 Temperature 97.9 F Pulse Rate 77 Respiratory Rate 14 Blood Pressure 115/79 Pulse Oximetry 94 Oxygen Delivery Intake/Output Intake/Output: Intake & Output 03/17/24 03/18/24 03/19/24 03/20/24 23:59 23:59 23:59 23:59 Intake Total 50 Output Total 1500 Balance 50 -1500 Meds/Results Medications: Active Medications Generic Name Dose Route Start Last Admin Trade Name Freq PRN Reason Stop Dose Admin Acetaminophen 650 mg 03/19/24 23:51 Acetaminophen 325 Mg Tablet PO Q4H PRN Mild Pain (1-3) or Fever Allopurinol 100 mg 03/20/24 08:00 03/20/24 09:37 Allopurinol 100 Mg Tablet PO 100 mg BIDWM [facility] Administration Divalproex Sodium 250 mg 03/20/24 16:[address] 250 Mg Tabec PO 1600 [facility] Divalproex Sodium 500 mg 03/20/24 08:00 03/20/24 09:[address] 250 Mg Tabec PO 500 mg DAILY@0800 [facility] Administration Docusate Sodium 100 mg 03/20/24 09:00 03/20/24 10:03 Docusate So
--- NOTE | 2024-03-20 12:06 | PC.NURSE ---
RN called to obtained TORB consent for patient's surgery and no answer at this time. Voicemail left.
--- NOTE | 2024-03-20 14:46 | PC.NURSE ---
irrigation discontinued per urology orders. catheter plug placed in irrigation port. pt has no complaints or requests at this time.
[2024-03-20] MEDS: DIVALPROEX SODIUM DR 250 MG TABEC PO (15:30)
[2024-03-20] MEDS: DOCUSATE SODIUM 100 MG CAPSULE PO (17:17)
[2024-03-20] MEDS: ACETAMINOPHEN 325 MG TABLET 650 MG PO (17:18)
[2024-03-20] MEDS: OLANZapine 2.5 MG TABLET 7.5 MG PO (21:08)
[2024-03-20] MEDS: GABAPENTIN 100 MG CAPSULE 200 MG PO (21:08)
[2024-03-21 05:25] LABS: Basophils Percent Auto 0.4 % (0.2-1.2); Eosinophils Absolute Auto 0.3 K/mm3 (0-0.3); Eosinophils Percent Auto 4.2 % (0-4.4); Hematocrit 38.3 % (42.0-52.0); Hemoglobin 11.7 g/dL (14.0-18.0); Immature Granulocyte Absolute 0.02 K/mm3 (0.00-0.031); Immature Granulocyte Percent A 0.3 % (0-0.5); Lymphocytes Absolute Auto 1.85 K/mm3 (0.9-3.2); Lymphocytes Percent Auto 24.4 % (18.3-44.2); Mean Corpuscular HGB Conc 30.5 g/dl (32-36); Mean Corpuscular Hemoglobin 28.1 pg (26-34); Mean Corpuscular Volume 92.1 fl (80-100); Mean Platelet Volume 10.1 fl (7.4-10.4); Monocytes Absolute Auto 0.8 K/mm3 (0.1-0.6); Neutrophils Absolute Auto 4.6 K/mm3 (1.3-6.7); Neutrophils Percent Auto 60.7 % (45.5-73.1); Platelet Count Result 243 k/mm3 (150-375); Red Blood Count 4.16 M/mm3 (4.6-6.20); Red Cell Distribution Width 14.6 % (11.5-14.5); White Blood Count 7.6 K/mm3 (4.5-10.0)
[2024-03-21 05:36] LABS: Alanine Aminotransferase 10 U/L (6-50); Albumin Level 3.8 g/dL (3.5-5.1); Alkaline Phosphatase 82 U/L (38-126); Anion Gap 5 mmol/L (4-12); Aspartate Amino Transferase 17 U/L (17-59); Bilirubin,Total 0.4 mg/dL (0.2-1.3); Blood Urea Nitrogen 20 mg/dL (9-20); Calcium 8.6 mg/dL (8.4-10.2); Carbon Dioxide 30 mmol/L (22-30); Chloride 106 mmol/L (98-107); Estimated CRCL calculation 86 ml/min; Estimated Glomerular Filt Rate > 60; Glucose 102 mg/dL (65-110); Magnesium 2.4 mg/dL (1.6-2.3); Sodium 141 mmol/L (137-145)
[2024-03-21] MEDS: FLUTICASONE/SALMETEROL 115-21 MCG INHALER 1 PUFF 2 PUFF INHALATION (07:51)
[2024-03-21] MEDS: UMECLIDINIUM BROMIDE 62.5 MCG ELLIPTA 1 PUFF INHALATION (07:51)
[2024-03-21 07:52] VITALS: PULSE 74; RESP 18; O2SAT 94
[2024-03-21 07:55] VITALS: PULSE 74; RESP 18
[2024-03-21] MEDS: TAMSULOSIN HCL 0.4 MG CAPSULE PO (08:21)
[2024-03-21] MEDS: POTASSIUM CHLORIDE 10 MEQ ER TABLET PO (08:21)
[2024-03-21] MEDS: allopurinoL 100 MG TABLET PO ×2 (08:21→16:25)
[2024-03-21] MEDS: DOCUSATE SODIUM 100 MG CAPSULE PO ×2 (08:22→16:25)
[2024-03-21] MEDS: polyethylene glycoL 3350 17 GM POWD.PACK PO (08:22)
[2024-03-21] MEDS: FUROSEMIDE 20 MG TABLET PO (08:22)
[2024-03-21] MEDS: DIVALPROEX SODIUM DR 250 MG TABEC 500 MG PO (08:31)
[2024-03-21] MEDS: FLUTICASONE PROPIONATE 0.05% NA SPR 16 GM BTL (*BKC) 2 SPRAY NASAL (09:06)
[2024-03-21 14:16] VITALS: BP 130/89; PULSE 90; RESP 20; TEMP 36.5; O2SAT 94
--- NOTE | 2024-03-21 14:41 | PM.DS ---
DS: Admitting Diagnosis Discharge Date 03/21/2024 Admitting Diagnosis Hematuria DS: Discharge Diagnosis Discharge Diagnosis (1) UTI (urinary tract infection): Qualifiers: Hematuria presence: with hematuria Urinary tract infection type: acute cystitis Qualified Code(s): N30.01 - Acute cystitis with hematuria Code(s): N39.0 - Urinary tract infection, site not specified Status: Acute (2) Gross hematuria: Code(s): R31.0 - Gross hematuria Status: Acute (3) Hematoma of bladder wall: Qualifiers: Encounter type: initial encounter Qualified Code(s): S37.22XA - Contusion of bladder, initial encounter Code(s): S37.22XA - Contusion of bladder, initial encounter Status: Acute (4) 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 He otherwise had no complaints.? Upon presentation to [place] ER he is found to have abnormal urinalysis 250 mL on a bladder scan and CT abdomen pelvis demonstrating hematoma in the bladder lumen with bladder wall thickening.? Law catheter placed with CBI initiated.? Urology consulted from ER.? No plans for procedure.? Hematuria has slowed down monitor off CBI eventually Law catheter removed. He was able to urinate without hematuria post catheter removal. He was treated with stone for UTI.? Follow urine culture was no growth. Will switch to oral cefdinir at discharge. SCDs. Code status DNR. Time Spent with Patient Time attestation: Total time spent providing and/or coordinating discharge services: 35 minutes Exam Narrative: GENERAL:? Elderly, well-nourished, non-toxic, in no acute distress. HEAD: Normocephalic, atraumatic. ENT: Edentulous. RESPIRATORY: Airway patent, respirations nonlabored. Clear to auscultation bilaterally, no rales, rhonchi, wheezing. CARDIOVASCULAR: Regular rate and rhythm without murmurs, rubs, or gallops. ABDOMINAL: Soft, nontender, no rebound, nondistended. Normoactive BS. MUSCULOSKELETAL: Moves all extremities. No gross deformities. SKIN: Warm, dry, normal color. NEURO: A&O X3. Speech clear. Cranial nerves II-XII grossly intact. Steady gait.? Tardive dyskinesia. PSYCHIATRIC: Appropriate mood and affect. Normal interaction DS: Data Data Completed and Pending Labs on day of discharge: Labs from last 24 hours 03/21/24 04:57 WBC 7.6 RBC 4.16 L Hgb 11.7 L Hct 38.3 L MCV 92.1 MCH 28.1 MCHC 30.5 L RDW 14.6 H Plt Count 243 MPV 10.1 Immature Gran % (Auto) 0.3 Neut % (Auto) 60.7 Lymph % (Auto) 24.4 [place] % (Auto) 10.0 H Eos % (Auto) 4.2 Baso % (Auto) 0.4 Lymph # (Auto) 1.85 [place] # (Auto) 0.8 H Eos # (Auto) 0.3 Baso # (Auto) 0.0 Abs Immat Gran (auto) 0.02 Absolute Neuts (auto) 4.6 Absolute Nucleated RBC 0.000 Nucleated RBC % 0.0 Sodium 141 Potassium 4.0 Chloride 106 Carbon Dioxide 30 Anion Gap 5 BUN 20 Creatinine 0.70 Estim Creat Clear Calc 86 Estimated GFR > 60 Glucose 102 Calcium 8.6 Magnesium 2.4 H Total Bilirubin 0.4 AST 17 ALT 10 Alkaline Phosphatase 82 Total Protein 7.0 Albumin 3.8 Preliminary micro results at discharge 03/20/24 00:04 Blood Culture - Preliminary Blood 03/20/24 00:04 Blood Culture - Preliminary Blood Imaging Radiologist's impression: ITS Impressions Abdomen/Pelvis CT 03/19/24 23:10 IMPRESSION: 1. Hematoma in the bladder lumen. 2. Diffuse bladder wall thickening, likely secondary to chronic outlet obstruction from the mildly enlarged prostate. 3. Pneumonia in the lower lobes. Discharge Plan Discharge
[2024-03-21 16:20] LABS: SARS-CoV-2 RNA PCR Negative (Negative)
[2024-03-21] MEDS: DIVALPROEX SODIUM DR 250 MG TABEC PO (16:40)
== END 2024-03-21 17:20 | DRG 690 ==
LOC: ANHED 03-20 00:24 → ANH3MEDSUR 03-20 00:58
PROVIDERS: Nurse Practitioner Family; Admitting Provider General Practice; Emergency Provider Physician Assistant; PCP Family Medicine; Visit Provider Internal Medicine
DX: N30.01 Acute cystitis with hematuria (principal); S37.22XA Contusion of bladder, initial encounter; F20.9 Schizophrenia, unspecified; G40.909 Epilepsy, unspecified, not intractable, without status epilepticus; G24.4 Idiopathic orofacial dystonia; J44.9 Chronic obstructive pulmonary disease, unspecified; M10.9 Gout, unspecified; N40.1 Benign prostatic hyperplasia with lower urinary tract symptoms; R33.8 Other retention of urine; X58.XXXA Exposure to other specified factors, initial encounter; Z66 Do not resuscitate; Z11.52 Encounter for screening for COVID-19; Z87.820 Personal history of traumatic brain injury; Z85.118 Personal history of other malignant neoplasm of bronchus and lung
CPT/HCPCS: 36415; 51700; 74178; 80053; 81001; 83735; 84153; 85025; 85610; 87040; 87086; 87088; 87635; 93005; 94640; 96365; 97161; 99285; A9270; G0378; J0696; Q9967

== ENCOUNTER 2024-06-08 22:28 | Emergency (ER) | payer MEDICARE, MEDICAID, SELFPAY ==
--- NOTE | ~2024-06-08 | CT_ITS ---
EXAMINATION: CT brain wo con DATE: 06/08/2024 23:08 INDICATION: Head injury. TECHNIQUE: Computed tomography (CT) of the head was performed without intravenous contrast. The mA wa s adjusted according to patient size. Iterative reconstruction technique was employed. The dose-lengt h product was 832.33 mGy-cm. COMPARISON: Head CT 09/07/2004 FINDINGS: There is diffuse brain volume loss. There is no intracranial hemorrhage, acute infarction, or abnormal intracranial mass lesion. There are scattered areas of low attenuation in the cerebral wh ite matter, which is within normal limits for the patient's age. The ventricles are normal in size. T he mastoid air cells are normal. There is mucosal thickening in the paranasal sinuses. The orbits are normal. IMPRESSION: 1. Normal aging brain. Reviewed, dictated and finalized at location E. IMPRESSION: 1. Normal aging brain.
--- NOTE | ~2024-06-08 | CT_ITS ---
EXAMINATION: CT cervical spine wo con DATE: 06/08/2024 23:08 INDICATION: Head injury. TECHNIQUE: Computed tomography (CT) of the cervical spine was performed without intravenous contrast. Automated exposure control and iterative reconstruction technique were employed. The dose-length pro duct was 526.31 mGy-cm. COMPARISON: None FINDINGS: There is mild emphysema. There is 6 degrees levocurvature of cervical spine. There is kypho sis of cervical spine. There is mild chronic anterior wedging of C7 and T1 vertebral bodies. There is mildly decreased disc height at C3-C4 and C4-C5 and severely decreased disc height at C5-C6 and C6-C 7. The following disc levels are specifically discussed: C2-C3: There is mild bilateral uncovertebral joint osteoarthritis. There is severe bilateral facet gabe int osteoarthritis. There is mild bilateral neural foraminal stenosis. There is no central canal sten osis. C3-C4: There is severe right and mild left uncovertebral joint osteoarthritis. There is severe bilate ral facet joint osteoarthritis. There is moderate right and mild left neural foraminal stenosis. Ther e is mild central canal stenosis. C4-C5: There is mild bilateral uncovertebral joint osteoarthritis. There is moderate right and severe left facet joint osteoarthritis. There is mild left neural foraminal stenosis. There is no central c anal stenosis. C5-C6: There is moderate right and severe left uncovertebral joint osteoarthritis. There is moderate bilateral facet joint osteoarthritis. There is moderate left neural foraminal stenosis. There is mild central canal stenosis. C6-C7: There is severe bilateral uncovertebral joint osteoarthritis. There is severe bilateral facet joint osteoarthritis. There is moderate right and mild left neural foraminal stenosis. There is mild central canal stenosis. C7-T1: There is no uncovertebral joint osteoarthritis. There is mild bilateral facet joint osteoarthr itis. There is no neural foraminal stenosis. There is no central canal stenosis. IMPRESSION: 1. No fracture. 2. Severe cervical spondylosis. Reviewed, dictated and finalized at location E.
[2024-06-08 22:54] VITALS: BP 131/79; PULSE 66; RESP 20; TEMP 36.3; O2SAT 97
--- NOTE | 2024-06-09 00:18 | ED.FALL ---
HPI - Fall General Chief Complaint: Fall Stated Complaint: fall Time Seen by Provider: 06/09/24 00:07 History of Present Illness HPI Narrative: Patient is a 73-year-old male who presents to the emergency department this afternoon from [facility] due to an unwitnessed fall. Patient typically transfers himself with help from wheelchair to his bedside commode, however, patient did not call for help and was trying to move himself from the wheelchair and fell to the ground. Patient denies any loss of consciousness and he is currently denying any symptoms including any headaches. He does have a small 0.5 cm linear abrasion to his right forehead, otherwise no concerns or symptoms. He is at his Baseline. Denies any blood thinner use. Related Data Home Medications Medication Instructions Recorded Confirmed allopurinol 100 mg tablet 100 mg PO BID 10/04/20 03/20/24 divalproex 250 mg tablet,delayed 250 mg PO QPM 10/04/20 03/20/24 release divalproex 500 mg tablet,delayed 500 mg PO DAILY 10/04/20 03/20/24 release docusate sodium 100 mg capsule 100 mg PO BID 10/04/20 03/20/24 fluticasone propionate 50 50 mcg intranasal DAILY 10/04/20 03/20/24 mcg/actuation nasal spray,suspension gabapentin 100 mg capsule 200 mg PO HS 10/04/20 03/20/24 guaifenesin 400 mg tablet 400 mg PO BID 10/04/20 03/20/24 haloperidol lactate 5 mg/mL 2 mg BID 10/04/20 03/20/24 injection solution meloxicam 7.5 mg tablet 7.5 mg PO DAILY 10/04/20 03/20/24 olanzapine 7.5 mg tablet 7.5 mg PO HS 10/04/20 03/20/24 polyethylene glycol 3350 17 gram 17 g PO DAILY 10/04/20 03/20/24 oral powder packet (Miralax) tamsulosin 0.4 mg capsule 0.4 mg PO DAILY 10/04/20 03/20/24 Tylenol 1,000 mg PO BID 03/20/24 03/20/24 atropine 1 % sublingual Q4-5H PRN As Needed 03/20/24 03/20/24 for secretions budesonide-formoterol HFA 160 2 inh inhalation BID 03/20/24 03/20/24 mcg-4.5 mcg/actuation aerosol inhaler (Symbicort) furosemide 20 mg tablet 20 mg PO DAILY 03/20/24 03/20/24 lumateperone 42 mg capsule 42 mg PO DAILY 03/20/24 03/20/24 (Caplyta) potassium chloride 10 mEq 10 meq PO DAILY 03/20/24 03/20/24 capsule,extended release umeclidinium 62.5 mcg/actuation 1 inh inhalation DAILY 03/20/24 03/20/24 blister powder for inhalation (Incruse Ellipta) Allergies Allergy/AdvReac Type Severity Reaction Status Date / Time TUBERCULIN,OLD SKIN TEST Allergy Unknown Unknown Uncoded 03/30/24 16:27 Review of Systems Review of Systems: All systems are reviewed and are negative unless stated otherwise in the HPI. [facility] Past Medical History Medical History History of COPD History of gout History of schizophrenia Social History Social History Smoking status: Unknown if ever smoked Alcohol intake: unknown Substance use: unknown Spiritual care concerns: No Exam Narrative: General: Alert, awake, afebrile, in no acute distress. HEENT: PERRL, no rhinorrhea, no post nasal drip, oropharynx clear, 0.5 cm linear abrasion to right forehead. Neck: Trachea midline, no JVD, no lymphadenopathy, no midline cervical spine tenderness to palpation. Cardiovascular: Regular rate and rhythm, no murmurs, rubs or gallops, no peripheral edema. Respiratory: Clear to auscultation bilaterally, no tachypnea, no wheezing, no rhonchi, no rubs, no respiratory distress. Abdomen: Soft, nontender, nondistended, no rebound, no guarding, no peritoneal signs. Musculoskeletal: No joint swelling or deformity, normal muscle tone. Skin: No rashes or petechia, no signs of infection. Neurological: Alert and oriented to person, place, and time. Follows all commands. No focal deficits, speech is clear and fluent. Course Vital Signs Vital signs: Vital Signs Temperature 97.3 F L 06/08/24 22:54 Pulse Rate 66 06/08/24 22:54 Respiratory Rate 20 06/08/24 2
--- NOTE | 2024-06-09 01:13 | PC.NURSE ---
[facility] Called back at 0106 ,declined to transport patient.
[2024-06-09 02:33] VITALS: BP 136/80; PULSE 65; RESP 16; O2SAT 97
== END 2024-06-09 02:37 ==
PROVIDERS: Emergency Provider Emergency Medicine
DX: S09.90XA Unspecified injury of head, initial encounter (principal); J44.9 Chronic obstructive pulmonary disease, unspecified; F20.9 Schizophrenia, unspecified; W05.0XXA Fall from non-moving wheelchair, initial encounter
CPT/HCPCS: 70450; 72125; 99284